=== PATIENT | male | born 1975 | race Caucasian/White ===

== ENCOUNTER 2017-09-20 13:03 | Day surgery (SDC) | payer OTHER ==
[~2017-09-20] VITALS: Ht 175.3 cm; Wt 122.0 kg
[~2017-09-20 13:03] MED LIST: FLEXERIL10 MG PO; LORTAB 5-325 M1 EACH PO
[2017-09-20 13:25] LABS: HEMATOCRIT 42.3 % (38.0-50.0); HEMOGLOBIN 14.7 G/DL (12.5-16.6); MCH 31.5 PG (29.0-34.0); MCHC 34.8 G/DL (30.0-36.0); MCV 90.6 FL (86-99); PLATELET COUNT 257 K/uL (156-360); RBC DIS.WIDTH-CV 11.8 % (11.8-14.6); RBC DIS.WIDTH-SD 38.8 % (39-53); RED BLOOD COUNT 4.67 M/uL (4.00-5.50); WHITE BLOOD COUNT 6.8 K/uL (4.1-10.2)
[2017-09-20 13:32] VITALS: BP 140/90
[2017-09-20 13:43] LABS: CHLORIDE 104 MEQ/L (99-109); POTASSIUM 3.6 MEQ/L (3.7-5.4); SODIUM 139 MEQ/L (136-147)
[2017-09-20 13:49] LABS: CREATININE 0.9 MG/DL (0.6-1.3); GFR ESTIMATE (CALCULATED) > 59 mL/min/ (58.99-99999); GLUCOSE 100 mg/dL (70-99); UREA NITROGEN (BUN) 18 mg/dL (9-23)
[2017-09-20 19:40] VITALS: BP 123/75
[2017-09-20 20:48] VITALS: BP 142/72
== END 2017-09-20 20:52 | disposition home or self-care (01) ==
LOC: SDC 13:03
PROVIDERS: Neurological Surgery
PROC: 01NB0ZZ Release Lumbar Nerve, Open Approach (ICD-10-PCS; principal; 2017-09-20)
PROC: 0SB20ZZ Excision of Lumbar Vertebral Disc, Open Approach (ICD-10-PCS; principal; 2017-09-20)
DX: M51.16 Intervertebral disc disorders with radiculopathy, lumbar region (principal); M48.061 Spinal stenosis, lumbar region without neurogenic claudication; G89.29 Other chronic pain; E66.3 Overweight; Z68.39 Body mass index [BMI] 39.0-39.9, adult; K21.9 Gastro-esophageal reflux disease without esophagitis
CPT/HCPCS: 72020; 76000; 80048; 85027; J0131; J0690; J1100; J1170; J1885; J2175; J2250; J2405; J2710; J2930; J3010; J3370; S0020

== ENCOUNTER 2018-02-26 22:06 | Inpatient (IN) | payer OTHER ==
[~2018-02-26] VITALS: Ht 175.3 cm; Wt 123.6 kg
[2018-02-27 12:08] VITALS: BP 111/65
[2018-02-27 19:58] VITALS: BP 113/56
[2018-02-27 23:48] VITALS: BP 117/58
[2018-02-28 04:06] VITALS: BP 125/69
[2018-02-28] MEDS ORDERED: LYRICA75 MG PO (06:45)
[2018-02-28] MEDS ORDERED: HYDROCODON-ACE1 EAC7 PO (06:45)
[2018-02-28] MEDS ORDERED: CYCLOBENZAPRINE10 MG PO (06:45)
[2018-02-28 08:14] VITALS: BP 117/67
[2018-02-28 11:24] VITALS: BP 136/62
== END 2018-02-28 14:53 | disposition home or self-care (01) | DRG 460 ==
LOC: ENRESERV 22:06 → 2SOUTH 02-27 10:04 → ENRESERV 02-27 16:44 → 3EAST 02-27 19:29
PROC: 07DR3ZZ Extraction of Iliac Bone Marrow, Percutaneous Approach (ICD-10-PCS; principal; 2018-02-27)
PROC: 0SG00A0 Fusion of Lumbar Vertebral Joint with Interbody Fusion Device, Anterior Approach, Anterior Column, Open Approach (ICD-10-PCS; principal; 2018-02-27)
DX: M99.03 Segmental and somatic dysfunction of lumbar region (principal); M48.061 Spinal stenosis, lumbar region without neurogenic claudication; M54.16 Radiculopathy, lumbar region; M19.90 Unspecified osteoarthritis, unspecified site; E66.01 Morbid (severe) obesity due to excess calories; Z68.41 Body mass index [BMI] 40.0-44.9, adult
CPT/HCPCS: 72100; 76000; 86850; 86900; 86901; J0330; J0690; J1170; J2250; J2405; J2710; J3010; J3480; J7643